=== PATIENT | female | born 1945 | race Caucasian/White ===

== ENCOUNTER 2022-05-12 18:59 | Inpatient (IN) | payer MEDICARE, OTHER, SELFPAY ==
[2022-05-12] VITALS (13 sets, daily range): BP systolic 141–158; BP diastolic 72–90; PULSE 96–105; RESP 16–24; TEMP 36.6–38.2; O2SAT 94–98; BMI 32.5
--- NOTE | 2022-05-12 19:16 | DI.RAD.S_ITS ---
PROCEDURE: XR CHEST 1V INDICATIONS: suspected sepsis TECHNIQUE: One view of the chest was acquired. COMPARISON: None. FINDINGS: Surgical changes and devices: None. Lungs and pleura: Low lung volumes. No dense consolidation or pleural effusion. Mediastinum: Mediastinal contours appear normal. Heart size is normal. Bones and chest wall: No suspicious bony lesions. Overlying soft tissues appear unremarkable. IMPRESSION: No acute radiographic abnormality. Dictated by: David Valle M.D. on 05/12/2022 at 19:39 Approved by: David Valle M.D. on 05/12/2022 at 19:40
[2022-05-12] MEDS: SODIUM CHLORIDE 0.9% 1,000 ML 1000 ML IV (19:25)
--- NOTE | 2022-05-12 19:26 | ED.SEPSIS ---
HPI - Sepsis General Chief Complaint: Fever Mode of arrival: Ambulatory Source: patient Evaluation Sepsis Screen: Possible Sepsis Risk Sepsis Infection Criteria Present: Documented Infection Narrative: Patient is a 76 year old female with history of frequent UTIs. 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 however about 8 days ago she felt 1 coming on and was on a boat. She had Levaquin. She says she has now been taking Levaquin for 8 days she says it previously has always worked for her however she overall feels worse. She feels very weak and tired. He is to have painful frequent urination. No back pain abdominal pain he feels slightly nauseous. Noted to be mildly tachycardic. She says she is from [place], they park the boat here locally. Review of Systems Review of Systems Narrative: GENERAL: Feeling weak and 52 HEENT: Denies sinus pain, ear pain, sore throat, difficulty swallowing, neck pain RESPIRATORY: Denies dyspnea, cough, wheezing, hemoptysis, sputum. CARDIOVASCULAR: Denies chest pain, palpitations, orthopnea, edema GASTROINTESTINAL: Denies nausea, vomiting, abdominal pain, diarrhea, constipation, melena. : See HPI MUSCULOSKELETAL: Denies weakness, joint pain, or bony pain SKIN: No rash, no erythema, no pruritus NEUROLOGIC: Denies weakness, dizziness, headache, numbness, change in speech, confusion PSYCHIATRIC: No concerning psychosocial issues. 12 point review of systems is negative except for those stated above and HPI Patient History Social History household members: spouse Smoking Status: Never smoker alcohol intake: current Exam Initial Vital Signs Initial Vital Signs: Vital Signs Temperature 97.8 F 05/12/22 19:02 Pulse Rate 105 H 05/12/22 19:02 Respiratory Rate 24 05/12/22 19:02 Blood Pressure 142/90 H 05/12/22 19:02 Pulse Oximetry 98 05/12/22 19:02 Oxygen Delivery Method 05/12/22 19:02 GENERAL: 76-year-old appears mildly weak and in no acute distress. HEENT: Head atraumatic,EOMI, pupils reactive, face symmetric, moist mucous membranes CARDIOVASCULAR: Regular rate and rhythm without murmurs, rubs or gallops. RESPIRATORY: Breath sounds equal bilaterally, no wheezes rales or rhonchi. ABDOMEN: Soft, nontender. Normoactive bowel sounds all 4 quadrants. No guarding or rebound. : No CVA tenderness EXTREMITIES: Normal range of motion, no clubbing. Nonpitting edema bilaterally she states sometimes that happens with her UTI. Neurovascularly intact NEUROLOGICAL: Alert and oriented x4.Normal gait and speech. No cranial nerve deficits SKIN: Warm, dry, no laceration, no petechiae, no rashes or lesions. Course Orders Ordered: ED Orders 05/12/22 19:16 Chest [XR chest 1V] Stat 05/12/22 19:18 Complete Blood Count AUTO DIFF Stat Comprehensive Metabolic Panel Stat Lactate (Lactic Acid) Stat Lipase Stat Procalcitonin Stat 05/12/22 19:28 Urine Culture Stat Urine Microscopic Stat 05/12/22 19:40 Blood Culture Stat 05/12/22 22:05 CT abdomen pelvis w con Stat Acetaminophen (Acetaminophen 325 Mg Tablet) 650 mg PO Q6HR PRN PRN Reason: Fever/Mild Pain (1-3) Heparin Sodium (Porcine) (Heparin 5,000 Unit/Ml Vial) 5,000 unit SUBCUT BID ROMEO Sodium Chloride (Normal Saline 0.9%) 1,000 mls @ 100 mls/hr IV CONT [facility] Last Admin: 05/12/22 23:20 Dose: 100 mls/hr Documented By: REECE Piperacillin Sod/Tazobactam (Sod 3.375 gm/ Sodium Chloride) 100 mls @ 25 mls/hr IV Q8H [facility] Last Admin: 05/13/22 00:06 Dose: 25 mls/hr Documented By: EDD Ondansetron HCl (Ondansetron 4 Mg/2 Ml Inj) 4 mg IV Q8HR PRN PRN Reason: Nausea And Vomiting Discontinued Medications Acetaminophen (Acetaminophen 325 Mg Tablet) 975 mg PO NOW ONE Stop: 05/12/22 21:05 Last Admin: 05/12/22 21:07 Dose: 975 mg Documented By: VONNIE Sodium Chloride (Normal Saline 0.9%) 1,000 mls @ 1,000 mls/hr IV BOLUS ONE Stop: 05/12/22 20:03 Last Infusion: 05/12/22 21:18 Dose: 0 mls/hr Documented By: Admin: 05/12/22 19:25 Dose: 1,000 mls/hr Documented By: VONNIE Piperacillin Sod/Tazobactam (Sod 4.5 gm/ Sodium Chloride) 100 mls @ 200 mls/hr IV NOW ONE Stop: 05/12/22 19:34 Last Infusion: 05/12/22 20:18 Dose: 0 mls/hr Documented By: Admin: 05/12/22 19:43 Dose: 200 mls/hr Documented By: VONNIE Vital Signs Vital signs: Vital Signs - 8 hr 05/12/22 19:02 05/12/22 20:09 05/12/22 20:10 Temperature 97.8 F Pulse Rate 105 H 100 H Respiratory Rate 24 Blood Pressure 142/90 H 141/77 H Pulse Oximetry 98 98 Oxygen Delivery Method Room Air 05/12/22 20:10 05/12/22 20:58 05/12/22 21:07 Temperature 100.8 F H 100.8 F H Pulse Rate 96 H Respiratory Rate Blood Pressure Pulse Oximetry 98 Oxygen Delivery Method 05/12/22 20:30 05/12/22 20:38 05/12/22 20:38 Temperature Pulse Rate 99 H 100 H Respiratory Rate Blood Pressure 158/79 H Pulse Oximetry 98 98 Oxygen Delivery Method 05/12/22 20:47 05/12/22 20:47 05/12/22 21:00 Temperature Pulse Rate 103 H 100 H Respiratory Rate Blood Pressure 158/80 H Pulse Oximetry 98 98 Oxygen Delivery Method 05/12/22 21:30 Temperature Pulse Rate 100 H Respiratory Rate Blood Pressure Pulse Oximetry 95 Oxygen Delivery Method Sepsis Guideline Criteria Level 1 - Infection Sepsis Infection Criteria Present: Documented Infection Treatment Initiated Antibiotics:: IV antimicrobials will be initiated as soon as possible after recognition of sepsis state and within one hour for both sepsis and septic shock. MDM - Sepsis Lab Data Result diagrams: 05/12/22 19:18 05/12/22 19:18 Labs: Lab Results 05/12/22 05/12/22 05/12/22 Range/Units 19:18 19:18 19:18 WBC 12.7 H (4.5-11.0) X10^3/uL RBC 3.98 L (4.0-5.2) X10^6/uL Hgb 12.7 (12.0-16.0) g/dL Hct 36.6 (36-46) % MCV 92.0 (80-100) fL MCH 31.8 (26-34) PG MCHC 34.6 (30-36) % RDW 15.3 H (11.6-14.8) % Plt Count 302 (150-400) X10^3/uL Neut % (Auto) 84.2 H (50-75) % Lymph % (Auto) 8.5 L (25-40) % [place] % (Auto) 6.9 (3-14) % Eos % (Auto) 0.2 L (2-4) % Baso % (Auto) 0.2 (0-2) % Neut # (Auto) 53901 H (7881-6236) /uL Lymph # (Auto) 1100 (3753-8011) /uL [place] # (Auto) 900 (0-900) /uL Eos # (Auto) 0 (0-450) /uL Baso # (Auto) 0 (0-100) /uL Sodium 136 L (137-145) mmol/L Potassium 3.7 (3.4-5.1) mmol/L Chloride 100 (98-107) mmol/L Carbon Dioxide 22 (22-32) mmol/L BUN 18 H (7-17) mg/dL Creatinine 1.04 (0.52-1.04) mg/dL Estimated GFR 56 L (>60) mL/min BUN/Creatinine Ratio 17.3 (6-22) Glucose 132 H (80-110) mg/dL Lactate 1.6 (0.7-2.1) mmol/L Calcium 9.5 (8.4-10.2) mg/dL Total Bilirubin 0.7 (0.2-1.3) mg/dL AST 22 (14-36) IU/L ALT 20 (<35) IU/L Alkaline Phosphatase 72 (38-126) U/L Total Protein 7.8 (6.3-8.2) g/dL Albumin 4.5 (3.5-5.0) g/dL Globulin 3.3 (1.7-4.1) g/dL Albumin/Globulin Ratio 1.4 (1.0-2.8) Lipase 61 (23-300) U/L Procalcitonin 0.18 (<0.5) ng/mL Urine RBC (0-5/HPF) Urine WBC (0-5/HPF) Ur Squamous Epith Cells (0-5/HPF) Urine Bacteria (None) Ur Culture Indicated? 05/12/22 Range/Units 19:28 WBC (4.5-11.0) X10^3/uL RBC (4.0-5.2) X10^6/uL Hgb (12.0-16.0) g/dL Hct (36-46) % MCV (80-100) fL MCH (26-34) PG MCHC (30-36) % RDW (11.6-14.8) % Plt Count (150-400) X10^3/uL Neut % (Auto) (50-75) % Lymph % (Auto) (25-40) % [place] % (Auto) (3-14) % Eos % (Auto) (2-4) % Baso % (Auto) (0-2) % Neut # (Auto) (0273-5022) /uL Lymph # (Auto) (5370-8093) /uL [place] # (Auto) (0-900) /uL Eos # (Auto) (0-450) /uL Baso # (Auto) (0-100) /uL Sodium (137-145) mmol/L Potassium (3.4-5.1) mmol/L Chloride (98-107) mmol/L Carbon Dioxide (22-32) mmol/L BUN (7-17) mg/dL Creatinine (0.52-1.04) mg/dL Estimated GFR (>60) mL/min BUN/Creatinine Ratio (6-22) Glucose (80-110) mg/dL Lactate (0.7-2.1) mmol/L Calcium (8.4-10.2) mg/dL Total Bilirubin (0.2-1.3) mg/dL AST (14-36) IU/L ALT (<35) IU/L Alkaline Phosphatase (38-126) U/L Total Protein (6.3-8.2) g/dL Albumin (3.5-5.0) g/dL Globulin (1.7-4.1) g/dL Albumin/Globulin Ratio (1.0-2.8) Lipase (23-300) U/L Procalcitonin (<0.5) ng/mL Urine RBC 1-5/hpf (0-5/HPF) Urine WBC >100/hpf H (0-5/HPF) Ur Squamous Epith Cells 1-5 /hpf (0-5/HPF) Urine Bacteria Many (>30) H (None) Ur Culture Indicated? Cult not indicated Urine Dip Bedside Urine Glucose Negative Bedside Urine Bilirubin - Negative Bedside Urine Ketone - Negative Bedside Urine Occult Blood + Bedside Urine Protein + 30 Bedside Urine Urobilinogen - Negative Bedside Urine Nitrite - Negative Bedside Urine Leukocytes + [address] scan - abdomen/pelvis: Radiologist's Impression: Signed Patient: Carmen Youssef MR#: [id number] : 1945 Acct:[id number] Age/Sex: 76 / F Date of Service: 05/12/22 Loc: 224-1 Accession Number: [id number] ?? Procedure: CT abdomen pelvis w con Ordering Provider: Tereza Zarate D.O. PROCEDURE:? CT ABDOMEN PELVIS W CON ? INDICATIONS:? fever, uti ? TECHNIQUE:? After the administration of IV contrast, axial sections were acquired from the lung bases to the pubic symphysis.? Coronal and sagittal reformats were performed.? For radiation dose reduction, the following was used:? automated exposure control, adjustment of mA and/or kV according to patient size. ? COMPARISON:? None available.? 04/15/2017 study unable to be retrieved from archive. ? FINDINGS:? Image quality:? Metallic streak artifact is present within the lower lumbar spine limiting evaluation.? ? Lung bases:? There is mild atelectasis and scarring in the lung bases.? ? Heart:? Heart is normal in size.? A moderate to large hiatal hernia is demonstrated. ? ? ABDOMEN: Liver:? No mass lesion. Gallbladder:? Within normal limits without calcified gallstones.? ? Biliary ducts:? No biliary ductal dilatation.? ? Pancreas:? Unremarkable.? ? Spleen:? Normal in size.? ? Adrenal Glands:? No adrenal nodules.? ? Kidneys and Ureters:? There is asymmetric left perinephric and periureteral fat stranding mildly heterogeneous enhancement the left kidney.? Findings are suspicious for pyelonephritis.? No hydronephrosis.? No perinephric fluid collections to suggest an abscess.? ? ? Stomach and Bowel:? Stomach, small bowel loops, and colon are normal in caliber and wall thickness.? No pericecal inflammatory changes to suggest appendicitis.? There is colonic diverticulosis without acute diverticulitis.? Peritoneum:? No abnormal intraperitoneal fluid.? No free air.? ? Ventral Wall: ? No hernia.? Abdominal Nodes:? No retroperitoneal or mesenteric adenopathy by size criteria.? Vessels:? Aorta and inferior vena cava are normal in size.? ? PELVIS: Pelvic Organs:? Unremarkable.? ? Bladder:? There is a small left bladder diverticulum. Pelvic Nodes: No enlarged lymph nodes.? Miscellaneous: No inguinal hernias are seen. ? ? ? Bones:? There is a dextroscoliosis of the lumbar spine centered at L2.? Posterior fixation demonstrated at L3-L4.? Visualized osseous structures demonstrate no suspicious focal lesions. ? IMPRESSION:? ? 1. Asymmetric left perinephric and periureteral fat stranding with mild heterogeneous enhancement of the left kidney.? The findings are suggestive of pyelonephritis.? No hydronephrosis or perinephric fluid collections. ? 2. Moderate to large hiatal hernia.? ? ? Dictated by: Michele Pinzon M.D. on 05/12/2022 at 23:03 ? ? Approved by: Michele Pinzon M.D. on 05/12/2022 at 23:11 ? ECG Data Interpretation: Normal sinus rhythm rate 74 p.r. interval 170 QRS 90 QTC [address] changes MDM Narrative Medical decision making narrative: Patient does not appear to feel well. She has had 7 days of Levaquin as an still has weakness with UTI. CT does show perinephric stranding of the left kidney consistent with pyelonephritis. She has failed outpatient antibiotics. She is given a dose of Zosyn it does say she is allergic to cephalosporins but she states that she has previously done well with amoxicillin. She has leukocytosis of 12 with normal lactate. No signs of sepsis with 0 she is febrile and mildly tachycardic here in the ED. Dr. Chisholm in ed to see and evaluate and accepts patient Discharge Plan Departure Patient Disposition: Admitted As Inpatient Clinical Impression: Acute UTI Admit Date/Time: 05/12/22 22:10 Admit Provider: Robbi Chisholm
[2022-05-12] MEDS: PIPERACILLIN/TAZO 4.5 GM in SODIUM CHLORIDE 0.9% 100 ML IV (19:43)
[2022-05-12 20:03] LABS: Add Manual Diff / Slide Review NO; Basophils Absolute Auto 0 /uL (0-100); Basophils Percent Auto 0.2 % (0-2); Eosinophils Absolute Auto 0 /uL (0-450); Eosinophils Percent Auto 0.2 % (2-4); Hematocrit 36.6 % (36-46); Hemoglobin 12.7 g/dL (12.0-16.0); Lymphocytes Absolute Auto 1100 /uL (1100-4500); Lymphocytes Percent Auto 8.5 % (25-40); Mean Corpuscular HGB Conc 34.6 % (30-36); Mean Corpuscular Hemoglobin 31.8 PG (26-34); Monocytes Absolute Auto 900 /uL (0-900); Monocytes Percent Auto 6.9 % (3-14); Neutrophils Absolute Auto 10700 /uL (1500-7000); Neutrophils Percent Auto 84.2 % (50-75); Platelet Count 302 X10^3/uL (150-400); Red Blood Cell Count 3.98 X10^6/uL (4.0-5.2); Red Cell Distribution Width 15.3 % (11.6-14.8); White Blood Cell Count 12.7 X10^3/uL (4.5-11.0)
[2022-05-12 20:15] LABS: Lactate (Lactic Acid) 1.6 mmol/L (0.7-2.1)
[2022-05-12 20:17] LABS: Alanine Aminotransferase 20 IU/L (<35); Albumin 4.5 g/dL (3.5-5.0); Albumin Globulin Ratio 1.4 (1.0-2.8); Alkaline Phosphatase 72 U/L (38-126); Aspartate Aminotransferase 22 IU/L (14-36); BUN Creatinine Ratio 17.3 (6-22); Bilirubin Total 0.7 mg/dL (0.2-1.3); Blood Urea Nitrogen 18 mg/dL (7-17); Calcium 9.5 mg/dL (8.4-10.2); Carbon Dioxide 22 mmol/L (22-32); Chloride 100 mmol/L (98-107); Estimated Glomerular Filt Rate 56 mL/min (>60); Globulin 3.3 g/dL (1.7-4.1); Glucose 132 mg/dL (80-110); HEMOLYSIS < 15 (0-50); Lipase 61 U/L (23-300); Potassium 3.7 mmol/L (3.4-5.1); Sodium 136 mmol/L (137-145); Total Protein 7.8 g/dL (6.3-8.2)
[2022-05-12 20:33] LABS: Procalcitonin 0.18 ng/mL (<0.5)
[2022-05-12] MEDS: ACETAMINOPHEN 325 MG TABLET 975 MG PO (21:07)
[2022-05-12 21:28] LABS: Bacteria Urine Many (>30); Culture Indicated Urine Cult Not Indicated; RBC Urine 1-5/HPF (0-5/HPF); Squamous Epithelial Cell Urine 1-5 /HPF (0-5/HPF); WBC Urine >100/HPF (0-5/HPF)
--- NOTE | 2022-05-12 22:05 | DI.CT.S_ITS ---
PROCEDURE: CT ABDOMEN PELVIS W CON INDICATIONS: fever, uti TECHNIQUE: After the administration of IV contrast, axial sections were acquired from the lung bases to the pubic symphysis. Coronal and sagittal reformats were performed. For radiation dose reduction, the following was used: automated exposure control, adjustment of mA and/or kV according to patient size. COMPARISON: None available. 04/15/2017 study unable to be retrieved from archive. FINDINGS: Image quality: Metallic streak artifact is present within the lower lumbar spine limiting evaluation. Lung bases: There is mild atelectasis and scarring in the lung bases. Heart: Heart is normal in size. A moderate to large hiatal hernia is demonstrated. ABDOMEN: Liver: No mass lesion. Gallbladder: Within normal limits without calcified gallstones. Biliary ducts: No biliary ductal dilatation. Pancreas: Unremarkable. Spleen: Normal in size. Adrenal Glands: No adrenal nodules. Kidneys and Ureters: There is asymmetric left perinephric and periureteral fat stranding mildly heterogeneous enhancement the left kidney. Findings are suspicious for pyelonephritis. No hydronephrosis. No perinephric fluid collections to suggest an abscess. Stomach and Bowel: Stomach, small bowel loops, and colon are normal in caliber and wall thickness. No pericecal inflammatory changes to suggest appendicitis. There is colonic diverticulosis without acute diverticulitis. Peritoneum: No abnormal intraperitoneal fluid. No free air. Ventral Wall: No hernia. Abdominal Nodes: No retroperitoneal or mesenteric adenopathy by size criteria. Vessels: Aorta and inferior vena cava are normal in size. PELVIS: Pelvic Organs: Unremarkable. Bladder: There is a small left bladder diverticulum. Pelvic Nodes: No enlarged lymph nodes. Miscellaneous: No inguinal hernias are seen. Bones: There is a dextroscoliosis of the lumbar spine centered at L2. Posterior fixation demonstrated at L3-L4. Visualized osseous structures demonstrate no suspicious focal lesions. IMPRESSION: 1. Asymmetric left perinephric and periureteral fat stranding with mild heterogeneous enhancement of the left kidney. The findings are suggestive of pyelonephritis. No hydronephrosis or perinephric fluid collections. 2. Moderate to large hiatal hernia. Dictated by: Michele Pinzon M.D. on 05/12/2022 at 23:03 Approved by: Michele Pinzon M.D. on 05/12/2022 at 23:11
[2022-05-12 22:42] LABS: COVID19 -Nasal RAPID Negative (Negative)
[2022-05-12] MEDS: SODIUM CHLORIDE 0.9% 1,000 ML 100 ML IV (23:20)
--- NOTE | 2022-05-12 23:32 | P.HP_ITS ---
History of Present Illness History of Present Illness Date Patient Seen: 05/12/22 Time Patient Seen: 22:00 Chief complaint: Major UTI Narrative: Ms. Youssef is a 72W with PMH frequent UTIs who presents with fever, abdnominal pain and dysuria. She states she get frequent UTIs after a past urologic surgical complication. She has previously been on macrobid for suppressive therapy but this was stopped due to side effects. She was prescribed levaquin to keep on hand if she developed a UTI. She is traveling from [place]. She started to have symptoms 8 days ago and started to take levofloxacin. She has had no improvement with continued fevers, left sided abdominal pain, dysuria and nausea so she presented to the hospital. In the hospital workup was done, vitals notable for heart rate in the 100s, respiratory rate in the 20s. Labs notable for WBC 12.7, creatinine 1.04. UA >100 WBCs, >[address] showed left sided perinephric stranding. She was ordered for IV fluids and zosyn and admitted for further treatment. Family history: Father with CVA Social history: occasional EtOH, no smoking Patient History Family & Social History Social History: household members spouse Prior Living Arrangements House Safety & Behavioral: Feels Safe in Current Yes Environment Been Physically Hurt or No Threatened By a Person Tobacco & Substance use: Smoking Status Never smoker alcohol intake current alcohol intake frequency a few times a week Substance Use Type does not use Meds Home Medications and Allergies Home Medications Medication Instructions Recorded Confirmed Type [CRANBERRY EXTRACT] ##0 04/15/17 History carvedilol 12.5 mg tablet (Coreg) 12.5 mg PO BID ##0 04/15/17 05/12/22 History potassium chloride 20 mEq 20 meq PO DAILY ##0 04/15/17 05/12/22 History tablet,extended release(part/cryst) (Klor-Con M) baclofen 10 mg tablet 10 mg PO TID PRN Spasms 05/12/22 05/12/22 History diphenoxylate-atropine 2.5 1 tab PO QID PRN Diarrhea 05/12/22 05/12/22 History mg-0.025 mg tablet gabapentin 300 mg capsule 300 mg PO TID 05/12/22 05/12/22 History Allergies Allergy/AdvReac Type Severity Reaction Status Date / Time acetaminophen [From PERCOCET] Allergy Unknown Unverified 11/18/17 12:47 cefaclor [From CECLOR] Allergy Unknown Unverified 11/18/17 12:47 meperidine [From DEMEROL] Allergy Unknown Unverified 11/18/17 12:47 oxycodone [From PERCOCET] Allergy Unknown Unverified 11/18/17 12:47 simvastatin [From ZOCOR] Allergy Unknown Unverified 11/18/17 12:47 Review of Systems Review of Systems Narrative: 14 systems reviewed and negative aside from what is noted in HPI Exam Vital Signs (past 8 hours): - 05/12/22 19:02 05/12/22 20:09 05/12/22 20:10 Temperature 97.8 F Pulse Rate 105 H 100 H Respiratory Rate 24 Blood Pressure 142/90 H 141/77 H Pulse Oximetry 98 98 Oxygen Delivery Method Room Air Oxygen Flow Rate 05/12/22 20:10 05/12/22 20:58 05/12/22 21:07 Temperature 100.8 F H 100.8 F H Pulse Rate 96 H Respiratory Rate Blood Pressure Pulse Oximetry 98 Oxygen Delivery Method Oxygen Flow Rate 05/12/22 20:30 05/12/22 20:38 05/12/22 20:38 Temperature Pulse Rate 99 H 100 H Respiratory Rate Blood Pressure 158/79 H Pulse Oximetry 98 98 Oxygen Delivery Method Oxygen Flow Rate 05/12/22 20:47 05/12/22 20:47 05/12/22 21:00 Temperature Pulse Rate 103 H 100 H Respiratory Rate Blood Pressure 158/80 H Pulse Oximetry 98 98 Oxygen Delivery Method Oxygen Flow Rate 05/12/22 21:30 05/12/22 22:17 05/12/22 23:14 Temperature 98.9 F 98.3 F Pulse Rate 100 H 98 H Respiratory Rate 16 Blood Pressure 142/72 H Pulse Oximetry 95 94 Oxygen Delivery Method Oxygen Flow Rate 0 Oxygen Delivery Method Room Air Oxygen Flow Rate 0 Narrative Exam Narrative: GEN: appears in mild distress HEENT: moist mucous membranes, PERRL NECK: trachea midline, no JVD CV: regular rate and rhythm, no murmurs PULM: clear bilaterally, no wheezes, rhonchi, rales ABD: soft, nontender, nondistended, no organomegaly, normal bowel sounds EXT: warm and well perfused, with no edema NEURO: awake, alert, oriented, no focal deficits Objective Labs Result Diagrams: 05/12/22 19:18 05/12/22 19:18 Labs: Laboratory Results - last 24 hr 05/12/22 05/12/22 05/12/22 19:18 19:18 19:18 WBC 12.7 H RBC 3.98 L Hgb 12.7 Hct 36.6 MCV 92.0 MCH 31.8 MCHC 34.6 RDW 15.3 H Plt Count 302 Neut % (Auto) 84.2 H Lymph % (Auto) 8.5 L [place] % (Auto) 6.9 Eos % (Auto) 0.2 L Baso % (Auto) 0.2 Neut # (Auto) 09013 H Lymph # (Auto) 1100 [place] # (Auto) 900 Eos # (Auto) 0 Baso # (Auto) 0 Sodium 136 L Potassium 3.7 Chloride 100 Carbon Dioxide 22 BUN 18 H Creatinine 1.04 Estimated GFR 56 L BUN/Creatinine Ratio 17.3 Glucose 132 H Lactate 1.6 Calcium 9.5 Total Bilirubin 0.7 AST 22 ALT 20 Alkaline Phosphatase 72 Total Protein 7.8 Albumin 4.5 Globulin 3.3 Albumin/Globulin Ratio 1.4 Lipase 61 Procalcitonin 0.18 Urine RBC Urine WBC Ur Squamous Epith Cells Urine Bacteria Ur Culture Indicated? SARS-CoV-2 (PCR) 05/12/22 05/12/22 19:28 22:23 WBC RBC Hgb Hct MCV MCH MCHC RDW Plt Count Neut % (Auto) Lymph % (Auto) [place] % (Auto) Eos % (Auto) Baso % (Auto) Neut # (Auto) Lymph # (Auto) [place] # (Auto) Eos # (Auto) Baso # (Auto) Sodium Potassium Chloride Carbon Dioxide BUN Creatinine Estimated GFR BUN/Creatinine Ratio Glucose Lactate Calcium Total Bilirubin AST ALT Alkaline Phosphatase Total Protein Albumin Globulin Albumin/Globulin Ratio Lipase Procalcitonin Urine RBC 1-5/hpf Urine WBC >100/hpf H Ur Squamous Epith Cells 1-5 /hpf Urine Bacteria Many (>30) H Ur Culture Indicated? Cult not indicated SARS-CoV-2 (PCR) Negative Assessment & Plan Assessment & Plan narrative: Ms. Youssef is a 76W with PMH frequent UTIs who presents with pyelonephritis. 1. Acute pyelonephritis -patient with fever and tachycardia, with positive UA -has already taken a week of oral antibiotics with no improvement, will need IV antibiotics -CT shows perinpephric stranding, no stone noted -continue IV zosyn -follow urine and blood cultures 2. Scoliosis -continue pain meds prn 3. Hiatal hernia -consider PPI on discharge 4. Hypertension -hold blood pressure medications for now CODE: Full Proxy: Michele Youssef, I have utilized all available resources to reconcile the patient's home medications Time Spent With Patient Critical Care time: I spent a total of [] minutes of critical care time on this patient's care today; this time is exclusive of procedural time. Quality VTE Deep Vein Thrombosis/Pulmonary Embolism Present on Admission: No MIPS - Admit I confirm the patient?s Advance Care Plan is present, Code status is documented, Surrogate decision maker is in patient?s record [If Yes, STOP here]: Yes
[2022-05-13] VITALS (10 sets, daily range): BP systolic 117–152; BP diastolic 61–80; PULSE 86–91; RESP 17–19; TEMP 36.6–38.1; O2SAT 95–98; BMI 32.5
[2022-05-13] MEDS: PIPERACILLIN/TAZO 3.375 GM in SODIUM CHLORIDE 0.9% 100 ML IV ×3 (00:06→17:00)
--- NOTE | 2022-05-13 05:42 | PC.ADMIT ---
2214 [facility] Admission Note: Patient admitted to AC unit from ED transported via stretcher. Transferred via SBA using cane. Alert and oriented x 4, able to make needs known. Oriented to room and shown how to use call light, using call light appropriately. NS running @ 100/hr. Bed in low position, brakes locked. Call light within reach. The patient,Carmen Youssef,76 y/o, was given written information regarding hospital policies, unit procedures and contact persons. Patient's smoking status: Never smoker. Vital Signs - 8 hr 05/12/22 22:17 05/12/22 23:14 05/12/22 23:00 Temperature 98.9 F 98.3 F 98.3 F Pulse Rate 98 H Respiratory Rate 16 Blood Pressure 142/72 H Pulse Oximetry 94 Oxygen Flow Rate 0
[2022-05-13 06:29] LABS: Add Manual Diff / Slide Review NO; Basophils Absolute Auto 100 /uL (0-100); Basophils Percent Auto 0.8 % (0-2); Eosinophils Absolute Auto 0 /uL (0-450); Eosinophils Percent Auto 0.1 % (2-4); Hematocrit 30.7 % (36-46); Hemoglobin 10.5 g/dL (12.0-16.0); Lymphocytes Absolute Auto 800 /uL (1100-4500); Lymphocytes Percent Auto 7.9 % (25-40); Mean Corpuscular HGB Conc 34.1 % (30-36); Mean Corpuscular Hemoglobin 31.4 PG (26-34); Mean Corpuscular Volume 92.2 fL (80-100); Monocytes Absolute Auto 800 /uL (0-900); Monocytes Percent Auto 8.5 % (3-14); Neutrophils Absolute Auto 8200 /uL (1500-7000); Neutrophils Percent Auto 82.7 % (50-75); Platelet Count 253 X10^3/uL (150-400); Red Blood Cell Count 3.33 X10^6/uL (4.0-5.2); Red Cell Distribution Width 15.2 % (11.6-14.8); White Blood Cell Count 9.9 X10^3/uL (4.5-11.0)
[2022-05-13 06:44] LABS: BUN Creatinine Ratio 15.5 (6-22); Blood Urea Nitrogen 13 mg/dL (7-17); Calcium 8.2 mg/dL (8.4-10.2); Carbon Dioxide 21 mmol/L (22-32); Chloride 102 mmol/L (98-107); Estimated Glomerular Filt Rate > 60 mL/min (>60); Glucose 116 mg/dL (80-110); HEMOLYSIS < 15 (0-50); Potassium 3.3 mmol/L (3.4-5.1); Sodium 133 mmol/L (137-145)
[2022-05-13] MEDS: ACETAMINOPHEN 325 MG TABLET 650 MG PO ×2 (06:57→20:29)
[2022-05-13] MEDS: SODIUM CHLORIDE 0.9% 1,000 ML 100 ML IV ×2 (07:03→18:51)
--- NOTE | 2022-05-13 09:35 | P.PN_ITS ---
Subjective Subjective Date Patient Seen: 05/13/22 Time Patient Seen: 12:00 Interval history: Feeling somewhat better but still having flank pain. Sitting up eating lunch and otherwise no complaints. Exam Vital Signs (past 8 hours): - 05/13/22 06:54 05/13/22 06:57 05/13/22 09:00 Temperature 100.1 F H 100.1 F H 97.9 F Pulse Rate 91 H 86 Respiratory Rate 18 17 Blood Pressure 132/80 126/74 Pulse Oximetry 95 96 Oxygen Flow Rate 0 0 Oxygen Delivery Method Room Air Oxygen Flow Rate 0 Narrative Exam Narrative: GEN: comfortable HEENT: moist mucous membranes, PERRL NECK: trachea midline, no JVD CV: regular rate and rhythm, no murmurs PULM: clear bilaterally, no wheezes, rhonchi, rales ABD: soft, nontender, nondistended, no organomegaly, normal bowel sounds EXT: warm and well perfused, with no edema NEURO: awake, alert, oriented, no focal deficits Objective Labs Result Diagrams: 05/13/22 06:14 05/13/22 06:14 Labs: Laboratory Results - last 24 hr 05/12/22 05/12/22 05/12/22 19:18 19:18 19:18 WBC 12.7 H RBC 3.98 L Hgb 12.7 Hct 36.6 MCV 92.0 MCH 31.8 MCHC 34.6 RDW 15.3 H Plt Count 302 Neut % (Auto) 84.2 H Lymph % (Auto) 8.5 L [place] % (Auto) 6.9 Eos % (Auto) 0.2 L Baso % (Auto) 0.2 Neut # (Auto) 19542 H Lymph # (Auto) 1100 Teller # (Auto) 900 Eos # (Auto) 0 Baso # (Auto) 0 Sodium 136 L Potassium 3.7 Chloride 100 Carbon Dioxide 22 BUN 18 H Creatinine 1.04 Estimated GFR 56 L BUN/Creatinine Ratio 17.3 Glucose 132 H Lactate 1.6 Calcium 9.5 Total Bilirubin 0.7 AST 22 ALT 20 Alkaline Phosphatase 72 Total Protein 7.8 Albumin 4.5 Globulin 3.3 Albumin/Globulin Ratio 1.4 Lipase 61 Procalcitonin 0.18 Urine RBC Urine WBC Ur Squamous Epith Cells Urine Bacteria Ur Culture Indicated? SARS-CoV-2 (PCR) 05/12/22 05/12/22 05/13/22 19:28 22:23 06:14 WBC 9.9 RBC 3.33 L Hgb 10.5 L Hct 30.7 L MCV 92.2 MCH 31.4 MCHC 34.1 RDW 15.2 H Plt Count 253 Neut % (Auto) 82.7 H Lymph % (Auto) 7.9 L Teller % (Auto) 8.5 Eos % (Auto) 0.1 L Baso % (Auto) 0.8 Neut # (Auto) 8200 H Lymph # (Auto) 800 L [place]eller # (Auto) 800 Eos # (Auto) 0 Baso # (Auto) 100 Sodium Potassium Chloride Carbon Dioxide BUN Creatinine Estimated GFR BUN/Creatinine Ratio Glucose Lactate Calcium Total Bilirubin AST ALT Alkaline Phosphatase Total Protein Albumin Globulin Albumin/Globulin Ratio Lipase Procalcitonin Urine RBC 1-5/hpf Urine WBC >100/hpf H Ur Squamous Epith Cells 1-5 /hpf Urine Bacteria Many (>30) H Ur Culture Indicated? Cult not indicated SARS-CoV-2 (PCR) Negative 05/13/22 06:14 WBC RBC Hgb Hct MCV MCH MCHC RDW Plt Count Neut % (Auto) Lymph % (Auto) Teller % (Auto) Eos % (Auto) Baso % (Auto) Neut # (Auto) Lymph # (Auto) Teller # (Auto) Eos # (Auto) Baso # (Auto) Sodium 133 L Potassium 3.3 L Chloride 102 Carbon Dioxide 21 L BUN 13 Creatinine 0.84 Estimated GFR > 60 BUN/Creatinine Ratio 15.5 Glucose 116 H Lactate Calcium 8.2 L Total Bilirubin AST ALT Alkaline Phosphatase Total Protein Albumin Globulin Albumin/Globulin Ratio Lipase Procalcitonin Urine RBC Urine WBC Ur Squamous Epith Cells Urine Bacteria Ur Culture Indicated? SARS-CoV-2 (PCR) [facility] Medical History (Updated 05/13/22 @ 08:15 by Roselia Collins, GEOFF) Anemia, unspecified Chronic diarrhea Chronic kidney disease, stage 3a Chronic UTI Essential (primary) hypertension Hoarseness of voice Hyperlipidemia Idiopathic hypoparathyroidism Lumbar degenerative disc disease Normal colonoscopy Pulmonary embolism Recurrent UTI (urinary tract infection) Scoliosis Screening mammogram for breast cancer Surgical History (Updated 05/13/22 @ 08:21 by Roselia Collins, GEOFF) H/O rotator cuff surgery H/O: hysterectomy History of gynecologic surgery S/P epidural steroid injection Social History household members: spouse Smoking Status: Never smoker alcohol intake: current Assessment & Plan Assessment & Plan narrative: Ms. Youssef is a 76W with PMH frequent UTIs who presents with pyelonephritis. 1. Acute pyelonephritis -patient with fever and tachycardia, with positive UA -has already taken a week of oral antibiotics with no improvement, will need IV antibiotics -CT shows left perinpephric stranding, no stone noted -continue IV zosyn -follow urine and blood cultures 2. Scoliosis -continue pain meds prn 3. Hiatal hernia -consider PPI on discharge 4. Hypertension -hold blood pressure medications for now CODE: Full Proxy: Michele Youssef, I have utilized all available resources to reconcile the patient's home medications Dispo: Dc home in 1-2 days. Time Spent With Patient Critical Care time: I spent a total of [] minutes of critical care time on this patient's care today; this time is exclusive of procedural time. Quality VTE Deep Vein Thrombosis/Pulmonary Embolism Present on Admission: No
[2022-05-13 09:53] LABS: Magnesium 1.1 mg/dL (1.6-2.3)
[2022-05-13] MEDS: HEPARIN 5,000 UNIT/ML VIAL 5000 UNIT SUBCUT ×2 (10:12→20:32)
[2022-05-13] MEDS: POTASSIUM CHLORIDE 20 MEQ TAB 40 MEQ PO ×2 (10:13→17:00)
[2022-05-13] MEDS: MAGNESIUM SULFATE 4 GM/100 ML PIGGYBACK IV (13:26)
--- NOTE | 2022-05-13 15:46 | CM.IDA ---
Initial Discharge Assessment Patient is 76 y/o female who presents to due to concern for UTI. Per UR, patient is OBS status. Patient endorses she has PCP in [place] where she resides. Patient has Medicare and [employer] insurance. Patient has hx of UTI, Hypertension, CKD, Hyperlipidemia and patient endorses she had back surgery recently. [facility]SP[facility] RADIOLOG[facility] enters room to meet with patient. Patient presents as A/Ox3. Patient endorses independence with ADLs. Patient endorses she uses a cane to ambulate since she had back surgery in February 2022. Patient endorses she is currently residing on a boat with and will return to home in [place] with at the end of the month. Patient denies any DCP needs, patient states she will f/u with PCP upon return to [place]. Patient endorses will pick patient up upon medical clearance and d/c to home. Plan: Patient likely to d/c to home tomorrow, patient to d/c to home with upon medical clearance. CHAUNCEY Bro Discharge Planning/Care Management CM Discharge Assessment Start: 05/13/22 15:42 Freq: Status: Active Protocol: Document 05/13/22 15:44 LN (Rec: 05/13/22 15:46 LN [id number]) Discharge Planning Assessment Assigned Radiology Nurse CHAUNCEY Noriega Advance Directives? Yes Advance Directives on File No History Provided By Patient Has Patient been admitted in last 30 No days? Prior Living Arrangements House Comment Patient currently living on boat with seasonally and will return to home in [place] at the end of the month. Household Members spouse Type of transporation used prior to Drives own vehicle admit Independent with ADL's Yes Is patient alert and oriented? Yes Discharge Plan Home Referrals Initiated None needed Please Provide Date Initial DC 05/13/22 Assessment Was Performed
[2022-05-13] MEDS: carvediloL 12.5 MG TABLET PO (20:31)
[2022-05-14] VITALS (7 sets, daily range): BP systolic 95–143; BP diastolic 54–71; PULSE 75–89; RESP 16–18; TEMP 36.1–36.9; O2SAT 96–100
[2022-05-14] MEDS: PIPERACILLIN/TAZO 3.375 GM in SODIUM CHLORIDE 0.9% 100 ML IV ×4 (00:42→23:09)
[2022-05-14] MEDS: SODIUM CHLORIDE 0.9% 1,000 ML 100 ML IV ×2 (04:56→14:47)
[2022-05-14 06:13] LABS: Add Manual Diff / Slide Review NO; Basophils Absolute Auto 0 /uL (0-100); Basophils Percent Auto 0.5 % (0-2); Eosinophils Absolute Auto 0 /uL (0-450); Eosinophils Percent Auto 0.4 % (2-4); Hematocrit 29.4 % (36-46); Hemoglobin 10.1 g/dL (12.0-16.0); Lymphocytes Absolute Auto 1200 /uL (1100-4500); Lymphocytes Percent Auto 14.8 % (25-40); Mean Corpuscular HGB Conc 34.2 % (30-36); Mean Corpuscular Hemoglobin 31.8 PG (26-34); Mean Corpuscular Volume 92.9 fL (80-100); Monocytes Absolute Auto 800 /uL (0-900); Monocytes Percent Auto 9.6 % (3-14); Neutrophils Absolute Auto 5900 /uL (1500-7000); Neutrophils Percent Auto 74.7 % (50-75); Platelet Count 250 X10^3/uL (150-400); Red Blood Cell Count 3.16 X10^6/uL (4.0-5.2); Red Cell Distribution Width 15.7 % (11.6-14.8); White Blood Cell Count 7.9 X10^3/uL (4.5-11.0)
[2022-05-14 06:28] LABS: BUN Creatinine Ratio 14.7 (6-22); Blood Urea Nitrogen 11 mg/dL (7-17); Calcium 7.5 mg/dL (8.4-10.2); Carbon Dioxide 23 mmol/L (22-32); Chloride 107 mmol/L (98-107); Estimated Glomerular Filt Rate > 60 mL/min (>60); Glucose 95 mg/dL (80-110); HEMOLYSIS < 15 (0-50); Potassium 4.1 mmol/L (3.4-5.1); Sodium 137 mmol/L (137-145)
[2022-05-14 06:32] LABS: Magnesium 2.1 mg/dL (1.6-2.3)
--- NOTE | 2022-05-14 06:42 | PC.NURSE ---
End of shift note. Patient AAOX4, denies pain. Up to BR to void with cane and SBA. Plan is to continue IV antibiotic.
--- NOTE | 2022-05-14 08:19 | PM.PN.1 ---
Subjective Subjective Date Patient Seen: 05/14/22 Time Patient Seen: 13:00 Interval history: Feeling better today and flank pain gone. Should be ready to go home tomorrow once culture results back. Exam Vital Signs (past 8 hours): - 05/14/22 06:00 Temperature 97.0 F L Pulse Rate 82 Respiratory Rate 17 Blood Pressure 143/71 H Pulse Oximetry 96 Oxygen Delivery Method Room Air Oxygen Flow Rate 0 Narrative Exam Narrative: GEN: comfortable HEENT: moist mucous membranes, PERRL NECK: trachea midline, no JVD CV: regular rate and rhythm, no murmurs PULM: clear bilaterally, no wheezes, rhonchi, rales ABD: soft, nontender, nondistended, no organomegaly, normal bowel sounds EXT: warm and well perfused, with no edema NEURO: awake, alert, oriented, no focal deficits Objective Labs Result Diagrams: 05/14/22 05:41 05/14/22 05:41 Labs: Laboratory Results - last 24 hr 05/13/22 05/14/22 05/14/22 06:14 05:41 05:41 WBC 7.9 RBC 3.16 L Hgb 10.1 L Hct 29.4 L MCV 92.9 MCH 31.8 MCHC 34.2 RDW 15.7 H Plt Count 250 Neut % (Auto) 74.7 Lymph % (Auto) 14.8 L [place] % (Auto) 9.6 Eos % (Auto) 0.4 L Baso % (Auto) 0.5 Neut # (Auto) 5900 Lymph # (Auto) 1200 [place] # (Auto) 800 Eos # (Auto) 0 Baso # (Auto) 0 Sodium Potassium Chloride Carbon Dioxide BUN Creatinine Estimated GFR BUN/Creatinine Ratio Glucose Calcium Magnesium 1.1 L 2.1 05/14/22 05:41 WBC RBC Hgb Hct MCV MCH MCHC RDW Plt Count Neut % (Auto) Lymph % (Auto) [place] % (Auto) Eos % (Auto) Baso % (Auto) Neut # (Auto) Lymph # (Auto) [place] # (Auto) Eos # (Auto) Baso # (Auto) Sodium 137 Potassium 4.1 Chloride 107 Carbon Dioxide 23 BUN 11 Creatinine 0.75 Estimated GFR > 60 BUN/Creatinine Ratio 14.7 Glucose 95 Calcium 7.5 L Magnesium [facility] Medical History (Updated 05/13/22 @ 08:15 by Roselia Collins RN) Anemia, unspecified Chronic diarrhea Chronic kidney disease, stage 3a Chronic UTI Essential (primary) hypertension Hoarseness of voice Hyperlipidemia Idiopathic hypoparathyroidism Lumbar degenerative disc disease Normal colonoscopy Pulmonary embolism Recurrent UTI (urinary tract infection) Scoliosis Screening mammogram for breast cancer Surgical History (Updated 05/13/22 @ 08:21 by Roselia Collins RN) H/O rotator cuff surgery H/O: hysterectomy History of gynecologic surgery S/P epidural steroid injection Social History household members: spouse Smoking Status: Never smoker alcohol intake: current Assessment & Plan Assessment & Plan narrative: Ms. Youssef is a 76W with PMH frequent UTIs who presents with pyelonephritis. 1. Acute pyelonephritis -patient with fever and tachycardia, with positive UA -has already taken a week of oral antibiotics with no improvement, will need IV antibiotics -CT shows left perinpephric stranding, no stone noted -continue IV zosyn -follow urine and blood cultures 2. Scoliosis -continue pain meds prn 3. Hiatal hernia -consider PPI on discharge 4. Hypertension -hold blood pressure medications for now CODE: Full Proxy: Michele Youssef, I have utilized all available resources to reconcile the patient's home medications Dispo: Dc home in 1 day pending urine culture results. Time Spent With Patient Critical Care time: I spent a total of [] minutes of critical care time on this patient's care today; this time is exclusive of procedural time. Quality VTE Deep Vein Thrombosis/Pulmonary Embolism Present on Admission: No
[2022-05-14] MEDS: HEPARIN 5,000 UNIT/ML VIAL 5000 UNIT SUBCUT ×2 (09:31→20:06)
[2022-05-14] MEDS: POTASSIUM CHLORIDE 20 MEQ TAB PO (09:32)
[2022-05-14] MEDS: GABAPENTIN 300 MG CAPSULE PO ×3 (09:32→20:05)
[2022-05-14] MEDS: carvediloL 12.5 MG TABLET PO ×2 (09:32→20:05)
[2022-05-14] MEDS: DIPHENOXYLATE/ATROP 2.5/0.025 TABLET 1 EACH PO (20:05)
[2022-05-15] VITALS: BP 125/65; PULSE 79; RESP 14; TEMP 36.3; O2SAT 96
[2022-05-15] MEDS: DIPHENOXYLATE/ATROP 2.5/0.025 TABLET 1 EACH PO ×2 (01:41→08:24)
[2022-05-15] MEDS: SODIUM CHLORIDE 0.9% 1,000 ML 100 ML IV (01:44)
[2022-05-15 06:00] VITALS: BP 133/77; PULSE 63; RESP 16; TEMP 36.4; O2SAT 95
[2022-05-15 07:00] LABS: Magnesium 1.8 mg/dL (1.6-2.3)
[2022-05-15 07:01] LABS: BUN Creatinine Ratio 15.1 (6-22); Blood Urea Nitrogen 11 mg/dL (7-17); Calcium 7.5 mg/dL (8.4-10.2); Carbon Dioxide 23 mmol/L (22-32); Chloride 110 mmol/L (98-107); Estimated Glomerular Filt Rate > 60 mL/min (>60); Glucose 84 mg/dL (80-110); HEMOLYSIS < 15 (0-50); Sodium 138 mmol/L (137-145)
[2022-05-15 07:15] LABS: Add Manual Diff / Slide Review NO; Basophils Absolute Auto 100 /uL (0-100); Basophils Percent Auto 1.1 % (0-2); Eosinophils Absolute Auto 100 /uL (0-450); Eosinophils Percent Auto 2.4 % (2-4); Hematocrit 27.2 % (36-46); Hemoglobin 9.3 g/dL (12.0-16.0); Lymphocytes Absolute Auto 1500 /uL (1100-4500); Lymphocytes Percent Auto 28.2 % (25-40); Mean Corpuscular HGB Conc 34.1 % (30-36); Mean Corpuscular Hemoglobin 31.7 PG (26-34); Mean Corpuscular Volume 92.8 fL (80-100); Monocytes Absolute Auto 500 /uL (0-900); Monocytes Percent Auto 10.1 % (3-14); Neutrophils Absolute Auto 3000 /uL (1500-7000); Neutrophils Percent Auto 58.2 % (50-75); Platelet Count 234 X10^3/uL (150-400); Red Blood Cell Count 2.93 X10^6/uL (4.0-5.2); Red Cell Distribution Width 15.5 % (11.6-14.8); White Blood Cell Count 5.2 X10^3/uL (4.5-11.0)
[2022-05-15 07:45] VITALS: BP 154/75; PULSE 72; RESP 17; TEMP 36.3; O2SAT 99
[2022-05-15] MEDS: PIPERACILLIN/TAZO 3.375 GM in SODIUM CHLORIDE 0.9% 100 ML IV (08:23)
[2022-05-15 08:24] VITALS: BP 150/75; PULSE 78
[2022-05-15] MEDS: GABAPENTIN 300 MG CAPSULE PO (08:24)
[2022-05-15] MEDS: carvediloL 12.5 MG TABLET PO (08:24)
[2022-05-15] MEDS: HEPARIN 5,000 UNIT/ML VIAL 5000 UNIT SUBCUT (08:24)
[2022-05-15] MEDS: POTASSIUM CHLORIDE 20 MEQ TAB PO (08:24)
[2022-05-15 08:49] VITALS: O2SAT 95
--- NOTE | 2022-05-15 10:26 | PM.DS.1 ---
History of Present Illness History of Present Illness Date Patient Seen: 05/15/22 Time Patient Seen: 10:27 Chief complaint: Major UTI Narrative: Ms. Youssef is a 72W with PMH frequent UTIs who presents with fever, abdnominal pain and dysuria. She states she get frequent UTIs after a past urologic surgical complication. She has previously been on macrobid for suppressive therapy but this was stopped due to side effects. She was prescribed levaquin to keep on hand if she developed a UTI. She is traveling from [place]. She started to have symptoms 8 days ago and started to take levofloxacin. She has had no improvement with continued fevers, left sided abdominal pain, dysuria and nausea so she presented to the hospital. In the hospital workup was done, vitals notable for heart rate in the 100s, respiratory rate in the 20s. Labs notable for WBC 12.7, creatinine 1.04. UA >100 WBCs, >[address] showed left sided perinephric stranding. She was ordered for IV fluids and zosyn and admitted for further treatment. Discharge Providers Provider Date of admission: 05/14/22 10:05 Discharge Date: 05/15/22 Discharge provider: Seamus Zuniga DO Summary Hospital Course Discharge Diagnosis: 1. Acute pyelonephritis -patient with fever and tachycardia, with positive UA growing E. coli resistant to cipro and levaquin but sensitive to cephalosporins -has already taken a week of oral levaquin with no improvement, will need IV antibiotics -CT shows left perinpephric stranding, no stone noted -received 3 days of IV zosyn then discharged on po cefdinir to complete 1 week 2. Scoliosis -continue pain meds prn 3. Hiatal hernia -consider PPI on discharge 4. Hypertension -hold blood pressure medications for now Hospital Course: Admitted for acute pyelo after failing outpatient po levaquin. Put on IV zosyn and improved clinically with less left flank pain and fevers/leukocytosis resolved. Cultures grew E. coli resistant to cipro and levaquin but sensitive to cephalosporins. Discharged on 1 additional week of po cefdinir to complete 10 day course. Time Spent with Patient Time spent: Greater than 30 minutes Exam Vital Signs (past 8 hours): - 05/15/22 06:00 05/15/22 08:24 05/15/22 08:49 Temperature 97.6 F Pulse Rate 63 78 Respiratory Rate 16 Blood Pressure 133/77 150/75 H Pulse Oximetry 95 95 Oxygen Delivery Method Room Air Oxygen Flow Rate 05/15/22 07:45 Temperature 97.3 F L Pulse Rate 72 Respiratory Rate 17 Blood Pressure 154/75 H Pulse Oximetry 99 Oxygen Delivery Method Oxygen Flow Rate 0 Oxygen Delivery Method Room Air Oxygen Flow Rate 0 Narrative Exam Narrative: GEN: comfortable HEENT: moist mucous membranes, PERRL NECK: trachea midline, no JVD CV: regular rate and rhythm, no murmurs PULM: clear bilaterally, no wheezes, rhonchi, rales ABD: soft, nontender, nondistended, no organomegaly, normal bowel sounds EXT: warm and well perfused, with no edema NEURO: awake, alert, oriented, no focal deficits Objective Labs Result Diagrams: 05/15/22 05:57 05/15/22 05:57 Labs: Laboratory Results - last 24 hr 05/15/22 05/15/22 05/15/22 05:57 05:57 05:57 WBC 5.2 RBC 2.93 L Hgb 9.3 L Hct 27.2 L MCV 92.8 MCH 31.7 MCHC 34.1 RDW 15.5 H Plt Count 234 Neut % (Auto) 58.2 Lymph % (Auto) 28.2 [place] % (Auto) 10.1 Eos % (Auto) 2.4 Baso % (Auto) 1.1 Neut # (Auto) 3000 Lymph # (Auto) 1500 [place] # (Auto) 500 Eos # (Auto) 100 Baso # (Auto) 100 Sodium 138 Potassium 4.0 Chloride 110 H Carbon Dioxide 23 BUN 11 Creatinine 0.73 Estimated GFR > 60 BUN/Creatinine Ratio 15.1 Glucose 84 Calcium 7.5 L Magnesium 1.8 [facility] Medical History (Updated 05/13/22 @ 08:15 by Roselia Collins RN) Anemia, unspecified Chronic diarrhea Chronic kidney disease, stage 3a Chronic UTI Essential (primary) hypertension Hoarseness of voice Hyperlipidemia Idiopathic hypoparathyroidism Lumbar degenerative disc disease Normal colonoscopy Pulmonary embolism Recurrent UTI (urinary tract infection) Scoliosis Screening mammogram for breast cancer Surgical History (Updated 05/13/22 @ 08:21 by Roselia Collins RN) H/O rotator cuff surgery H/O: hysterectomy History of gynecologic surgery S/P epidural steroid injection Social History household members: spouse Smoking Status: Never smoker alcohol intake: current Discharge Plan Discharge Plan Patient Disposition: Home Provider Discharge Comment: You were admitted for failing antibiotics for a UTI. You improved on IV antibiotics and your urine cultures grew E. Coli resistant to levaquin and some other antibiotics. I've put you on a different one called cefdinir which will cover the E. coli for 1 more week. Discharge orders & Medications Prescriptions: New cefdinir 300 mg capsule 300 mg PO BID 7 Days Qty: 14 0RF Rx Instructions: start on evening of 05/15 cefdinir 300 mg capsule 300 mg PO BID 7 Days Qty: 14 0RF Rx Instructions: start evening of 05/15 Continued carvedilol [Coreg] 12.5 MG tablet 12.5 mg PO BID Qty: 0 potassium chloride [Klor-Con M20] 20 MEQ tablet,ER particles/crystals 20 meq PO DAILY Qty: 0 [CRANBERRY EXTRACT] 500 mg PO DAILY Qty: 0 baclofen 10 mg tablet 10 mg PO TID PRN (Reason: Spasms) Label Comments: TK1 TABLET BY MOUTH 3 TIMES DAILY NEEDED FOR MUSCLE PAIN SPASMS diphenoxylate-atropine 2.5-0.025 mg tablet 1 tab PO QID PRN (Reason: Diarrhea) Label Comments: TAKE 1 TABLET BY MOUTH FOUR TIMES DAILY NEEDED FOR DIARRHEA gabapentin 300 mg capsule 300 mg PO TID Label Comments: TAKE 1 CAPSULE BY MOUTH 3 TIMES DAILY Quality VTE Deep Vein Thrombosis/Pulmonary Embolism Present on Admission: No
[2022-05-15 12:00] VITALS: BP 131/68; PULSE 70; RESP 17; TEMP 36.4; O2SAT 100
== END 2022-05-15 12:00 | disposition home or self-care (01) | DRG 690 ==
LOC: ED 19:15 → AC 22:29
PROVIDERS: Admitting Provider Internal Medicine; Emergency Provider Emergency Medicine; Referring Provider Emergency Medicine; Visit Provider Student in an Organized Health Care Education/Training Program
DX: N10 Acute pyelonephritis (principal); Z16.29 Resistance to other single specified antibiotic; B96.20 Unspecified Escherichia coli [E. coli] as the cause of diseases classified elsewhere; I10 Essential (primary) hypertension; M41.80 Other forms of scoliosis, site unspecified; Z20.822 Contact with and (suspected) exposure to COVID-19
CPT/HCPCS: 36415; 71045; 74177; 80048; 80053; 81003; 81015; 83605; 83690; 83735; 84145; 85025; 87040; 87077; 87086; 87186; 87635; 93005; 96365; 99284; C9803; G0378; J1644; J2543; J3475; Q9967